=== PATIENT | female | born 1930 | race African-American/Black ===

== ENCOUNTER 2017-04-15 15:04 | Emergency (ER) | payer MEDICARE, MEDICAID ==
[~2017-04-15 15:04] MED LIST: BUPR100T13 PO; LEVO150T8 PO; OLOP2.5D EACHEYE
[2017-04-15 15:11] VITALS: BP 140/63
== END 2017-04-15 19:19 | disposition home or self-care (01) ==
LOC: ER 18:06
DX: H10.9 Unspecified conjunctivitis (principal); I10 Essential (primary) hypertension; Z87.891 Personal history of nicotine dependence
CPT/HCPCS: 99283

== ENCOUNTER 2018-07-21 17:41 | Emergency (ER) | payer MEDICARE, MEDICAID ==
[~2018-07-21] VITALS: Ht 165.1 cm; Wt 88.0 kg
[2018-07-21 18:03] VITALS: BP 163/79
== END 2018-07-21 22:41 | disposition left against medical advice (07) ==
LOC: ER 22:13
DX: Z53.21 Procedure and treatment not carried out due to patient leaving prior to being seen by health care provider (principal)

== ENCOUNTER 2018-11-22 15:51 | Emergency (ER) | payer MEDICARE, MEDICAID ==
[~2018-11-22] VITALS: Ht 165.1 cm; Wt 95.4 kg
[2018-11-22 18:22] LABS: BASOPHILS % 0.9 % (0.0-2.0); EOSINOPHILS % 3.8 % (0.0-5.0); HEMATOCRIT. 29.7 % (36.0-48.0); HEMOGLOBIN. 9.5 g/dL (12.0-16.0); LYMPHOCYTES % 33.7 % (20.0-50.0); MEAN CORPUSCULAR HEMOGLOBIN 28.8 pg (28.0-32.0); MEAN CORPUSCULAR VOLUME 90.2 fL (81.0-99.0); MEAN PLATELET VOLUME 8.6 fl (7.4-10.4); MONOCYTES % 11.6 % (2.0-8.0); PLATELET 161 x1000/uL (130-400); RED CELL DISTRIBUTION WIDTH 16.5 % (11.6-14.6)
[2018-11-22 18:25] LABS: CHLORIDE 110 mEq/L (98-107)
[2018-11-22] MEDS ORDERED: CEFTRIAXONE 1 G PREMIX 50 ML IV ONE (19:15)
[2018-11-22] MEDS ORDERED: AZITHROMYCIN 500 MG in DEXT 5% WATER 250 ML IV ONE (19:15)
[2018-11-22 22:31] VITALS: BP 131/58
== END 2018-11-22 22:32 | disposition home or self-care (01) ==
LOC: ER 16:12 → CANBEDREQ 23:28
DX: C34.11 Malignant neoplasm of upper lobe, right bronchus or lung (principal); R04.2 Hemoptysis; J44.9 Chronic obstructive pulmonary disease, unspecified; M19.90 Unspecified osteoarthritis, unspecified site; E11.9 Type 2 diabetes mellitus without complications; I48.91 Unspecified atrial fibrillation; Z90.710 Acquired absence of both cervix and uterus; Z79.01 Long term (current) use of anticoagulants; Z98.890 Other specified postprocedural states
CPT/HCPCS: 36415; 71045; 80053; 83880; 84484; 85025; 87040; 93005; 96365; 96366; 96368; 99284; J0456; J0696; J7060

== ENCOUNTER 2019-02-27 14:27 | Emergency (ER) | payer MEDICARE, MEDICAID ==
[~2019-02-27] VITALS: Ht 160 cm; Wt 90.0 kg
[2019-02-27] MEDS ORDERED: ALBUTEROL (0.083%) 2.5MG/3ML NEB HHN STA (15:27)
[2019-02-27] MEDS ORDERED: IPRATROPIUM BROMIDE (0.02%) 0.5MG/2.5ML NEB HHN STA (15:27)
[2019-02-27 15:48] LABS: BASOPHILS % 0.8 % (0.0-2.0); EOSINOPHILS % 2.3 % (0.0-5.0); HEMOGLOBIN. 8.5 g/dL (12.0-16.0); LYMPHOCYTES % 21.9 % (20.0-50.0); MEAN CORPUSCULAR HEMOGLOBIN 28.6 pg (28.0-32.0); MEAN CORPUSCULAR VOLUME 87.7 fL (81.0-99.0); MEAN PLATELET VOLUME 8.3 fl (7.4-10.4); MONOCYTES % 9.9 % (2.0-8.0); NEUTROPHILS % 65.1 % (40.0-76.0); PLATELET 176 x1000/uL (130-400); RED BLOOD CELL COUNT 2.96 mill/uL (4.2-5.4); RED CELL DISTRIBUTION WIDTH 17.9 % (11.6-14.6)
[2019-02-27 15:53] LABS: PROTHROMBIN TIME 10.3 sec (9.6-11.0)
[2019-02-27 15:55] LABS: CHLORIDE 107 mEq/L (98-107)
[2019-02-27 18:20] VITALS: BP 151/57
== END 2019-02-27 18:45 | disposition home or self-care (01) ==
LOC: ER 15:30
DX: R04.2 Hemoptysis (principal); C34.11 Malignant neoplasm of upper lobe, right bronchus or lung; D64.9 Anemia, unspecified; J44.9 Chronic obstructive pulmonary disease, unspecified; M79.7 Fibromyalgia; I48.91 Unspecified atrial fibrillation; M19.90 Unspecified osteoarthritis, unspecified site; Z79.01 Long term (current) use of anticoagulants; Z90.710 Acquired absence of both cervix and uterus; Z87.891 Personal history of nicotine dependence
CPT/HCPCS: 36415; 71045; 80053; 85025; 85610; 93005; 94640; 99284; J7611